=== PATIENT | female | born 1945 | race Caucasian/White ===

== ENCOUNTER 2018-05-23 05:42 | Emergency (ER) | payer OTHER, BC ==
[2018-05-23 06:03] VITALS: BMI 32.5
[2018-05-23] MEDS ORDERED: SODIUM CHLORIDE 0.9% 500 ML INFUS.BAG IV ONE (06:20)
[2018-05-23] MEDS ORDERED: ONDANSETRON 4 MG/2 ML VIAL IVPUSH ONE (06:20)
--- NOTE | 2018-05-23 07:11 | PDOC ---
History of Present Illness - General Chief Complaint: Pain Stated Complaint: ABD PAIN Time Seen by Provider: 05/23/18 07:10 History Source: Patient Exam Limitations: No Limitations - History of Present Illness Initial Comments: 05/23/18 08:35 Pt is a 72yo F with PMH of CAD s/p stent 2013, TIA, HTN, HLD, s/p appendectomy, s/p hysterectomy presenting to ED with complaints of abdominal pain that started around 2AM this morning. Pt states that the pain is intermittent, feels like a squeezing, is along the upper abdomen and back. Associated with nausea and 2 episodes of nbnb emesis. She had a bowel movement this morning when the pain started. Pt has had pain like this before in the past and says it was due to adhesions. She denies fevers, chills, chest pain, sob, diarrhea, constipation , bloody/tarry stools. PMD: Franky GI: Galo PMH: see hpi PSH: see hpi Meds: see med rec Allergies: nkda Social: denies Past History - Past Medical History Allergies/Adverse Reactions: Allergies Allergy/AdvReac Type Severity Reaction Status Date / Time No Known Allergies Allergy Verified 05/23/18 06:03 Home Medications: Ambulatory Orders Aspirin [Ecotrin] 81 mg PO DAILY 05/23/18 Cholecalciferol (Vitamin D3) [Vitamin D3] 1,000 unit PO DAILY 05/23/18 Diclofenac Potassium 100 mg PO DAILY 05/23/18 Garlic 1 each PO DAILY 05/23/18 Glucosam/Chond/Collagen/Hyalur [Glucosamine Chondroitin Cap] 1,500 mg PO DAILY 05/23/18 Isosorbide Mononitrate [Isosorbide Mononitrate ER] 30 mg PO DAILY 05/23/18 Metoprolol Succinate [Toprol Xl] 25 mg PO DAILY 05/23/18 Multivitamin [Poly-Vitamin] 1 each PO DAILY 05/23/18 Olmesartan Medoxomil [Benicar (Nf)] 40 mg PO DAILY 05/23/18 [place]-3/Dha/Epa/Fish Oil [[place] 3 500 Softgel] 2 each PO DAILY 05/23/18 Oxybutynin Chloride [Oxybutynin Chloride ER] 5 mg PO DAILY 05/23/18 Rosuvastatin [Crestor -] 10 mg PO DAILY 05/23/18 Vitamin E 400 unit PO DAILY 05/23/18 Anemia: No Asthma: No Cancer: No Cardiac Disorders: No CVA: No COPD: No CHF: No Dementia: No Diabetes: No GI Disorders: Yes (ADHESIONS,DIVERTICULOSIS,GASTRITIS,REFLUX) Disorders: No HTN: Yes Hypercholesterolemia: Yes Liver Disease: No Seizures: No Thyroid Disease: No - Surgical History Abdominal Surgery: No Appendectomy: Yes Cardiac Surgery: No Cholecystectomy: No Lung Surgery: No Neurologic Surgery: Yes (LAMINECTOMY) Orthopedic Surgery: No - Suicide/Smoking/Psychosocial Hx Smoking Status: No Smoking History: Never smoked Years of Tobacco Use: 35 Have you smoked in the past 12 months: No Number of Cigarettes Smoked Daily: 0 'Breaking Loose' booklet given: 11/07/11 Hx Alcohol Use: No Drug/Substance Use Hx: No Review of Systems - Review of Systems Constitutional: No: Chills, Fever, Loss of Appetite HEENTM: No: Symptoms Reported Respiratory: No: Cough, Shortness of Breath Cardiac (ROS): No: Chest Pain, Lightheadedness, Palpitations, Syncope ABD/GI: Yes: See HPI, Nausea, Vomiting, Abdominal cramping. No: Abdominal Distended, Blood Streaked Bowels, Constipated, Diarrhea, Rectal Bleeding : No: Burning, Dysuria, Flank Pain, Hematuria Musculoskeletal: No: Back Pain, Joint Pain Integumentary: No: Symptoms Reported Neurological: No: Headache, Numbness, Tingling *Physical Exam - Vital Signs Last Vital Signs Temp Pulse Resp BP Pulse Ox 97.1 F L 78 18 156/97 99 05/23/18 06:01 05/23/18 06:01 05/23/18 06:01 05/23/18 06:01 05/23/18 06:01 - Physical Exam General Appearance: Yes: Appropriately Dressed, Mild Distress, Obese HEENT: positive: EOMI, MARIO Neck: positive: Trachea midline, Supple. negative: Lymphadenopathy (R), Lymphadenopathy (L) Respiratory/Chest: positive: Lungs Clear, Normal Breath Sounds. negative: Crackles, Rales, Wheezing Cardiovascular: positive: Regular Rhythm, Regular Rate, S1, S2. negative: Edema , JVD, Murmur Vascular Pulses: Carotid (R): 2+, Carotid (L): 2+, Dorsalis-Pedis (R): 2+, Doralis-Pedis (L): 2+ Gastrointestinal/Abdominal: positive: Normal Bowel Sounds, Tender (RLQ and LLQ) , Soft. negative: Pulsatile Mass, Distended, Guarding, Rebound, Hernia, Mass Musculoskeletal: negative: CVA Tenderness Extremity: positive: Normal Capillary Refill Integumentary: positive: Normal Color, Dry, Warm Neurologic: positive: data management engineer II-XII NML intact, Fully Oriented, Alert, Normal Mood/ Affect, Normal Response, Motor Strength 5/5 Moderate Sedation - Procedure Monitoring Vital Signs: Procedure Monitoring Vital Signs Temperature 97.1 F L 05/23/18 06:01 Pulse Rate 78 05/23/18 06:01 Respiratory Rate 18 05/23/18 06:01 Blood Pressure 156/97 05/23/18 06:01 O2 Sat by Pulse Oximetry (%) 99 05/23/18 06:01 ED Treatment Course - LABORATORY CBC & Chemistry Diagram: 05/23/18 07:57 05/23/18 07:57 - Medications Given in the ED: ED Medications Discontinued Medications Generic Name Dose Route Start Last Admin Trade Name Liang PRN Reason Stop Dose Admin Ondansetron HCl 4 mg 05/23/18 06:20 05/23/18 06:25 Zofran Injection IVPUSH 05/23/18 06:21 4 mg ONCE ONE Administration Sodium Chloride 1,000 ml 05/23/18 06:20 05/23/18 06:25 Normal Saline - IV 05/23/18 06:21 1,000 ml ONCE ONE Administration Medical Decision Making - Medical Decision Making 05/23/18 08:38 Pt is a 72yo F with PMH of CAD s/p stent 2013, TIA, HTN, HLD, s/p appendectomy, s/p hysterectomy presenting to ED with complaints of abdominal pain that started around 2AM this morning. Pt states that the pain is intermittent, feels like a squeezing, is along the upper abdomen and back. Associated with nausea and 2 episodes of nbnb emesis. She had a bowel movement this morning when the pain started. Pt has had pain like this before in the past and says it was due to adhesions. She denies fevers, chills, chest pain, sob, diarrhea, constipation , bloody/tarry stools. Vitals: wnl PE: LLQ and RLQ tenderness. Ddx includes but not limited to bowel obstruction, colitis, pancreatitis, cholecystitis, mesenteric ischemia, ACS, PNA, AAA -cbc, cmp, lactate, lipase, trop, UA -CTAP -zofran and IV fluids ordered by night team. Added IV tylenol, morphine 05/23/18 19:14 Labs show elevated WBC (15), Hgb 16 elevated BUN. Lac 2.2 All other labs wnl. elevated WBC and Hgb most likely due to volume contraction. CT shows fatty infiltrate of liver, slight free fluid in R side of pelvis. No obstruction or infectious process. Will PO challenge and give 1L fluids, redraw Lactate. Pt is tolerating PO. Repeat Lact 1.9 Pt is hemodynamically stable, tolerating PO, has GI follow up, afebrile, pain controlled. Will DC home. Given strict return precautions. *DC/Admit/Observation/Transfer Diagnosis at time of Disposition: Fatty liver Abdominal pain Qualifiers: Abdominal location: generalized Qualified Code(s): R10.84 - Generalized abdominal pain - Discharge Dispostion Disposition: ELOPED Condition at time of disposition: Improved Decision to Admit order: No - Referrals Referrals: Brenden Cage [Primary Care Provider] - Socorro Rosenthal MD [Staff Physician] - - Patient Instructions Printed Discharge Instructions: DI for Abdominal Pain-Adult, DI for Nonalcoholic Fatty Liver Disease Additional Instructions: You were seen here in the emergency room for abdominal pain. Your lab tests were normal and the CT scan did not show any signs of infection or obstruction. I recommend you follow up with Dr. Rosenthal as soon as you can for further evaluation and management of your pain. I also recommend seeing your primary care doctor as well. Please keep yourself hydrated and rest. Come back to the emergency room if pain gets worse, you are unable to eat or drink anything, you notice blood in the vomit or stool, you develop fever or if any new concerning symptom develops. Thank you - Post Discharge Activity
[2018-05-23] MEDS ORDERED: ACETAMINOPHEN 1000 MG/100 ML VIAL (NON FORMULARY) IVPB ONE (07:38)
[2018-05-23] MEDS ORDERED: morphine CARPU-JECT 2 MG/1 ML DISP.SYRIN IVPUSH ONE (08:05)
--- NOTE | 2018-05-23 08:09 | PDOC ---
Attending Attestation - Resident Resident Name: ChristenRosita - ED Attending Attestation I have performed the following: I have examined & evaluated the patient, The case was reviewed & discussed with the resident, I agree w/resident's findings & plan, Exceptions are as noted - HPI HPI: 05/23/18 08:05 72y F hx of htn, hl, sp hysterectomy cb adhesions presents with abdominal pain starting approx 2:30am. The pt has noted intermittent severe crampy abdominal pain that is diffuse, associated with nausea without active vomiting. The patient denies any fever, chills, diarrhea, dysuria, hematuria, and, shortness of breath, diaphoresis, cough, numbness, tingling, weakness. The patient notes he had a bowel movement around when all this started. Patient notes she had similar episode many years ago that was due to adhesions. PMD [place] - Physicial Exam PE: 05/23/18 08:08 GENERAL: The patient is awake, alert, and fully oriented, Nontoxic - in no acute distress. HEAD: Normocephalic, atraumatic. EYES: extraocular movements intact, sclera anicteric, conjunctiva clear. ENT: Normal voice, Moist mucous membranes. NECK: Normal range of motion, supple LUNGS: Breath sounds equal, clear to auscultation bilaterally. No wheezes, no rhonchi, no rales. HEART: Regular rate and rhythm, normal S1 and S2 without murmur, rub or gallop. ABDOMEN: Soft, nontender, deminished bowel sounds. EXTREMITIES: Normal range of motion, no edema. NEUROLOGICAL: No facial assymetry, Normal speech, PSYCH: Normal mood, normal affect. SKIN: Warm, Dry, normal turgor, - Medical Decision Making 05/23/18 08:08 Suspect possible obstruction versus ileus We'll obtain blood work, may obtain CT antiemetics, fluids, hydration, analgesia for pain We will reassess 05/23/18 11:14 The patient's labs were reviewed lactic acid is slightly elevated 2.2 The patient does have a white count of suspect may be due to dehydration. The patient is abdominal CT was negative for acute pathology or obstruction. We'll hydrate the patient and rechecked patient's lactic acid and will if negative and the patient is a symptomatic we'll discharge patient Heart Score/ECG Review - ECG Impressions Comment:: 05/23/18 08:09 Twelve-lead EKG was performed and reviewed by me. There is normal sinus rhythm with a normal rate. Rate of 81 The axis is normal. The intervals are normal. There is normal R wave progression Q wave in lead 3
[2018-05-23] MEDS ORDERED: MORPHINE SULFATE 2 MG/ML VIAL ONE (08:13)
[2018-05-23 08:48] LABS: BASO % 0.2 % (0-2.0); EOS % 0.2 % (0-4.5); HEMATOCRIT 47.7 % (32.4-45.2); HEMOGLOBIN 16.3 GM/dL (10.7-15.3); LYMPH % 7.8 % (8-40); MCH 30.5 pg (25.7-33.7); MCHC 34.1 g/dl (32.0-36.0); MEAN CELL VOLUME 89.6 fl (80-96); MEAN PLT VOLUME 9.3 fl (7.5-11.1); MONO % 4.5 % (3.8-10.2); NEUT % 87.3 % (42.8-82.8); PLATELET COUNT 181 K/MM3 (134-434); RBC 5.32 M/mm3 (3.60-5.2); RDW 14.4 % (11.6-15.6); WHITE BLOOD COUNT 15.7 K/mm3 (4.0-10.0)
[2018-05-23 09:23] LABS: URINE APPEARANCE CLEAR; URINE BILIRUBIN NEGATIVE (<2.0 mg/dL); URINE COLOR YELLOW; URINE GLUCOSE (UA) NEGATIVE (NEGATIVE); URINE KETONE TRACE (NEGATIVE); URINE LEUK ESTERASE NEGATIVE (NEGATIVE); URINE NITRITE NEGATIVE (NEGATIVE); URINE PROTEIN NEGATIVE (NEGATIVE); URINE UROBILINOGEN NEGATIVE mg/dL (0.2-1.0)
[2018-05-23 09:32] LABS: ALBUMIN 4.5 g/dl (3.4-5.0); ALK PHOS 78 U/L (45-117); ANION GAP 9 MMOL/L (8-16); BILIRUBIN,TOTAL 0.5 mg/dL (0.2-1); BLOOD UREA NITROGEN 22 mg/dL (7-18); CALCIUM 9.8 mg/dL (8.5-10.1); CHLORIDE 105 mmol/L (98-107); CO2 27 mmol/L (21-32); CREATININE 0.8 mg/dL (0.55-1.3); GLUCOSE,RANDOM 109 mg/dL (74-106); POTASSIUM 4.3 mmol/L (3.5-5.1); SGOT/AST 35 U/L (15-37); SGPT/ALT 49 U/L (13-61); SODIUM 141 mmol/L (136-145); TOT PROT 7.8 g/dl (6.4-8.2)
[2018-05-23 09:33] LABS: LIPASE 69 U/L (73-393)
[2018-05-23] MEDS ORDERED: LACTATED RINGERS SOLUTION 1000 ML INFUS.BAG IV ONE (09:47)
[2018-05-23 12:57] VITALS: BP 141/76; PULSE 81; TEMP 98.1
--- NOTE | 2018-05-23 16:34 | EKG ---
Test Reason : Blood Pressure : / mmHG Vent. Rate : 081 BPM Atrial Rate : 081 BPM P-R Int : 160 ms QRS Dur : 068 ms QT Int : 370 ms P-R-T Axes : 048 -04 043 degrees QTc Int : 429 ms NORMAL SINUS RHYTHM MINIMAL VOLTAGE CRITERIA FOR LVH, MAY BE NORMAL VARIANT INFERIOR INFARCT (CITED ON OR BEFORE 07-DEC-2007) ABNORMAL ECG WHEN COMPARED WITH ECG OF 22-AUG-2013 16:39, NO SIGNIFICANT CHANGE WAS FOUND Confirmed by Ana Lam ([id number]) on 05/23/2018 4:34:27 PM Referred By: Confirmed By:Ana Lam
== END 2018-05-23 12:56 | disposition left against medical advice (07) ==
LOC: JER 05:42
PROC: 3E033GC Introduction of Other Therapeutic Substance into Peripheral Vein, Percutaneous Approach (ICD-10-PCS; principal; 2018-05-23)
PROC: 3E033NZ Introduction of Analgesics, Hypnotics, Sedatives into Peripheral Vein, Percutaneous Approach (ICD-10-PCS; 2018-05-23)
PROC: 3E033NZ Introduction of Analgesics, Hypnotics, Sedatives into Peripheral Vein, Percutaneous Approach (ICD-10-PCS; 2018-05-23)
DX: K76.0 Fatty (change of) liver, not elsewhere classified (principal); I25.10 Atherosclerotic heart disease of native coronary artery without angina pectoris; I10 Essential (primary) hypertension; Z95.5 Presence of coronary angioplasty implant and graft; E78.5 Hyperlipidemia, unspecified; Z86.73 Personal history of transient ischemic attack (TIA), and cerebral infarction without residual deficits
CPT/HCPCS: 36415; 74177-TC; 80053; 81003; 83605; 83690; 84484; 85025; 93005; 93010; 99282-25

== ENCOUNTER 2018-09-07 06:37 | Day surgery (SDC) | payer OTHER, BC ==
[2018-09-07 07:41] VITALS: BMI 33.0
[2018-09-07 09:00] VITALS: TEMP 97.8
[2018-09-07 12:18] VITALS: BP 134/79; PULSE 86
== END 2018-09-07 09:30 | disposition home or self-care (01) ==
LOC: JASU-ENDO 06:37
PROVIDERS: ATTEND Internal Medicine Gastroenterology
PROC: 0DJD8ZZ Inspection of Lower Intestinal Tract, Via Natural or Artificial Opening Endoscopic (ICD-10-PCS; principal; 2018-09-07 08:00)
DX: Z12.11 Encounter for screening for malignant neoplasm of colon (principal); K62.5 Hemorrhage of anus and rectum; K57.30 Diverticulosis of large intestine without perforation or abscess without bleeding; K64.8 Other hemorrhoids; K63.89 Other specified diseases of intestine

== ENCOUNTER 2019-03-04 11:21 | Emergency (ER) | payer OTHER, BC ==
[2019-03-04 11:29] VITALS: BP 143/90; PULSE 89; TEMP 97.8; BMI 34.6
[2019-03-04] MEDS ORDERED: FAMOTIDINE 20 MG/50 ML IVPB 20 MG/50 ML MG IVPB ONE (12:18)
[2019-03-04] MEDS ORDERED: MAG HYDROX/AL HYDROX/SIMETH 30 ML UNIT-DOSE CUP PO ONE (12:18)
--- NOTE | 2019-03-04 12:24 | PDOC ---
History of Present Illness - General Chief Complaint: Chest Pain Stated Complaint: CHEST PAIN Time Seen by Provider: 03/04/19 11:52 - History of Present Illness Initial Comments: 03/04/19 12:19 73 F with h/o HTN, COPD, presenting to ED with 3 weeks of intermittent chest pain. Pt states that she has been having L sided chest pain on and off. Describes it as a "gas-like" pain that comes on suddenly and self-resolves. Pt denies any associated SOB or nausea. Pt denies exertional or pleuritic nature of the pain. Denies any leg swelling. Denies recent travel/immobilization. No FH of [place]. Pt is former smoker but quit 20 years ago. Pt currently denies any symptoms. Past History - Past Medical History Allergies/Adverse Reactions: Allergies Allergy/AdvReac Type Severity Reaction Status Date / Time No Known Allergies Allergy Verified 05/23/18 06:03 Home Medications: Ambulatory Orders Aspirin [Ecotrin] 81 mg PO DAILY 05/23/18 Cholecalciferol (Vitamin D3) [Vitamin D3] 1,000 unit PO DAILY 05/23/18 Garlic 1 each PO DAILY 05/23/18 Glucosam/Chond/Collagen/Hyalur [Glucosamine Chondroitin Cap] 1,500 mg PO DAILY 05/23/18 Isosorbide Mononitrate [Isosorbide Mononitrate ER] 30 mg PO DAILY 05/23/18 Metoprolol Succinate [Toprol Xl] 25 mg PO DAILY 05/23/18 Multivitamin [Poly-Vitamin] 1 each PO DAILY 05/23/18 Olmesartan Medoxomil [Benicar -] 40 mg PO DAILY 05/23/18 [place]-3/Dha/Epa/Fish Oil [[place] 3 500 Softgel] 2 each PO DAILY 05/23/18 Oxybutynin Chloride [Oxybutynin Chloride ER] 5 mg PO DAILY 05/23/18 Rosuvastatin [Crestor -] 10 mg PO DAILY 05/23/18 Vitamin E 100 unit PO DAILY 05/23/18 Diclofenac Sodium [Voltaren -] 100 mg PO PRN PRN 09/07/18 Tiotropium [place] [Spiriva] 1 inh PO DAILY 09/07/18 Anemia: No Asthma: No Cancer: No Cardiac Disorders: Yes (ASHD) CVA: No COPD: Yes CHF: No Dementia: No Diabetes: No GI Disorders: Yes (ADHESIONS,DIVERTICULOSIS,GASTRITIS,REFLUX) Disorders: No HTN: Yes Hypercholesterolemia: Yes Liver Disease: No Seizures: No Thyroid Disease: No - Surgical History Abdominal Surgery: No Appendectomy: Yes (COLONOSCOPY 2X) Cardiac Surgery: Yes (CORONARY STENT) Cholecystectomy: No Lung Surgery: No Neurologic Surgery: Yes (LAMINECTOMY) Orthopedic Surgery: No - Immunization History Immunization Up to Date: No - Psycho Social/Smoking Cessation Hx Smoking Status: No Smoking History: Former smoker Years of Tobacco Use: 35 Have you smoked in the past 12 months: No Number of Cigarettes Smoked Daily: 0 Information on smoking cessation initiated: No 'Breaking Loose' booklet given: 11/07/11 Hx Alcohol Use: No Drug/Substance Use Hx: No Substance Use Type: None Hx Substance Use Treatment: No Review of Systems - Review of Systems Comments:: 03/04/19 12:20 "GENERAL/CONSTITUTIONAL: No fever or chills. No weakness. HEAD, EYES, EARS, NOSE AND THROAT: No change in vision. No ear pain or discharge. No sore throat. CARDIOVASCULAR: + chest pain, no shortness of breath, no loss of consciousness RESPIRATORY: No cough, wheezing, or hemoptysis. GASTROINTESTINAL: No nausea, vomiting, diarrhea or constipation. GENITOURINARY: No dysuria, frequency, or change in urination. MUSCULOSKELETAL: No joint or muscle swelling or pain. No neck or back pain. SKIN: No rash NEUROLOGIC: No vertigo, no change in strength/sensation. ENDOCRINE: No increased thirst. No abnormal weight change. HEMATOLOGIC/LYMPHATIC: No anemia, easy bleeding, or history of blood clots. ALLERGIC/IMMUNOLOGIC: No hives or skin allergy. *Physical Exam - Vital Signs Last Vital Signs Temp Pulse Resp BP Pulse Ox 97.8 F 89 16 143/90 98 03/04/19 11:23 03/04/19 11:23 03/04/19 11:23 03/04/19 11:23 03/04/19 11:23 - Physical Exam Comments: 03/04/19 12:22 "GENERAL: Awake, alert, and fully oriented, in no acute distress. HEAD: No signs of trauma EYES: PERRLA, EOMI, sclera anicteric, conjunctiva clear ENT: Auricles normal inspection, hearing grossly normal, nares patent, oropharynx clear without exudates. Moist mucosa NECK: Nontender, no stepoffs, Normal ROM, supple, no lymphadenopathy, JVD, or masses LUNGS: Breath sounds equal, clear to auscultation bilaterally. No wheezes, and no crackles HEART: Regular rate and rhythm, normal S1 and S2, no murmurs, rubs or gallops ABDOMEN: + epigastric TTP, normoactive bowel sounds. No guarding, no rebound. No masses EXTREMITIES: Normal range of motion, no edema. No clubbing or cyanosis. No cords, erythema, or tenderness NEUROLOGICAL: Cranial nerves II through XII intact. 5/5 strength and sensation in all extremities, Normal speech, normal gait, normal cerebellar function SKIN: Warm, Dry, normal turgor, no rashes or lesions noted. Heart Score/ECG Review - History History: Slightly suspicious - Electrocardiogram EKG: Normal - Age Age: >/= 65 - Risk Factors Risk Factors Heart Score: Yes Hx Hypertension, Yes Smoking History Based on the list above the patient has:: 1-2 risk factors - Troponin Troponin: </= normal limit - Score Heart Score - Total: 3 - ECG Impressions Comment:: 03/04/19 12:22 NSR, no FERMIN/STDs, no TWIs, L axis deviation, intervals wnl, rate 87 ED Treatment Course - LABORATORY CBC & Chemistry Diagram: 03/04/19 12:30 03/04/19 12:30 - RADIOLOGY Radiology Studies Ordered: Category Date Time Status CHEST PA & LAT [RAD] Stat Radiology 03/04/19 12:17 Ordered Medical Decision Making - Medical Decision Making 03/04/19 12:23 73 F with intermittent chest pain x 3 weeks. Very atypical for ACS. EKG with no ischemic changes. Possible gastritis/reflux, as pt reports gas-like pain. Abdominal exam with epigastric TTP. - Labs, trop - CXR - GI cocktail 03/04/19 14:19 Labs wnl CXR clear Pt reassessed - continues to feel well, with no chest pain Pt is well appearing, with normal vitals. Clinically stable for DC at this time. I discussed the physical exam findings, ancillary test results and final diagnoses with the patient. I answered all of the patient's questions. The patient was satisfied with the care received and felt comfortable with the discharge plan and treatment plan. The patient agrees to follow up with the primary care physician within 24-72 hours. Discharge - Discharge Information Problems reviewed: Yes Clinical Impression/Diagnosis: Chest pain Condition: Stable Disposition: HOME - Follow up/Referral Referrals: Brenden Cage [Primary Care Provider] - Andrew Harman MD [Staff Physician] - - Patient Discharge Instructions Patient Printed Discharge Instructions: DI for Atypical Chest Pain Additional Instructions: Your bloodwork, EKG, and chest X ray were all normal today. However, this does not rule out all serious disease. Please follow up with a material manager within 1 week for further evaluation of your chest pain. Call the number provided to make an appointment with Dr. Harman if you do not already have a material manager. If you experience recurrent pain, shortness of breath, or any other concerning symptoms, return to the ER immediately. - Post Discharge Activity
[2019-03-04] MEDS ORDERED: FAMOTIDINE 20 MG TABLET PO ONE (12:25)
[2019-03-04] MEDS ORDERED: FAMOTIDINE 10 MG TABLET ONE (12:40)
[2019-03-04] MEDS ORDERED: MAG HYDROX/AL HYDROX/SIMETH 30 ML UNIT-DOSE CUP ONE (12:41)
[2019-03-04 13:09] LABS: BASO % 0.5 % (0-2.0); EOS % 1.9 % (0-4.5); HEMATOCRIT 42.6 % (32.4-45.2); HEMOGLOBIN 14.3 GM/dL (10.7-15.3); LYMPH % 34.3 % (8-40); MCH 29.8 pg (25.7-33.7); MCHC 33.7 g/dl (32.0-36.0); MEAN CELL VOLUME 88.4 fl (80-96); MEAN PLT VOLUME 9.2 fl (7.5-11.1); MONO % 7.8 % (3.8-10.2); NEUT % 55.5 % (42.8-82.8); PLATELET COUNT 189 K/MM3 (134-434); RBC 4.81 M/mm3 (3.60-5.2); RDW 14.9 % (11.6-15.6); WHITE BLOOD COUNT 6.6 K/mm3 (4.0-10.0)
[2019-03-04 13:17] LABS: ALBUMIN 3.8 g/dl (3.4-5.0); ALK PHOS 77 U/L (45-117); ANION GAP 5 MMOL/L (8-16); BILIRUBIN,TOTAL 0.4 mg/dL (0.2-1); BLOOD UREA NITROGEN 19.9 mg/dL (7-18); CALCIUM 9.4 mg/dL (8.5-10.1); CHLORIDE 109 mmol/L (98-107); CO2 25 mmol/L (21-32); CREATININE 0.7 mg/dL (0.55-1.3); GLUCOSE,RANDOM 103 mg/dL (74-106); LIPASE 67 U/L (73-393); POTASSIUM 4.4 mmol/L (3.5-5.1); SGOT/AST 31 U/L (15-37); SGPT/ALT 46 U/L (13-61); SODIUM 139 mmol/L (136-145)
--- NOTE | 2019-03-05 13:52 | EKG ---
Test Reason : Blood Pressure : / mmHG Vent. Rate : 087 BPM Atrial Rate : 087 BPM P-R Int : 158 ms QRS Dur : 068 ms QT Int : 344 ms P-R-T Axes : 046 -13 037 degrees QTc Int : 413 ms NORMAL SINUS RHYTHM POSSIBLE LEFT ATRIAL ENLARGEMENT LEFT VENTRICULAR HYPERTROPHY INFERIOR INFARCT (CITED ON OR BEFORE 07-DEC-2007) ABNORMAL ECG WHEN COMPARED WITH ECG OF 23-MAY-2018 07:46, NO SIGNIFICANT CHANGE WAS FOUND Confirmed by HANNAH HARDY MD ([id number]) on 03/05/2019 1:52:19 PM Referred By: Confirmed By:HANNAH HARDY MD
== END 2019-03-04 14:41 | disposition home or self-care (01) ==
LOC: JER 11:21
DX: R07.9 Chest pain, unspecified (principal); I25.10 Atherosclerotic heart disease of native coronary artery without angina pectoris; Z95.5 Presence of coronary angioplasty implant and graft; J44.9 Chronic obstructive pulmonary disease, unspecified; E78.00 Pure hypercholesterolemia, unspecified; Z87.19 Personal history of other diseases of the digestive system
CPT/HCPCS: 36415; 71046-TC-FY; 80053; 82550; 82553; 83690; 84484; 85025; 93005; 93010; 99282-25

== ENCOUNTER 2019-03-05 17:55 | Emergency (ER) | payer OTHER, BC ==
--- NOTE | 2019-03-05 18:02 | PDOC ---
Rapid Medical Evaluation Chief Complaint: Pain Time Seen by Provider: 03/05/19 17:59 Medical Evaluation: Allergies Allergy/AdvReac Type Severity Reaction Status Date / Time No Known Allergies Allergy Verified 03/05/19 17:58 03/05/19 17:59 73 year old female c/o NVD, abdominal pain " feels like my bowels are twisting. " seen in the ER yesterday PMHX: adhesions, copd, diverticulitis A: abdominal pain P: cbc cmp lipase ua urine culture 03/05/19 18:03 Discharge Disposition - Diagnosis Abdominal pain Qualifiers: Abdominal location: unspecified location Qualified Code(s): R10.9 - Unspecified abdominal pain - Referrals Referrals: Trey Rosenthal MD [Primary Care Provider] - - Patient Instructions - Post Discharge Activity
[2019-03-05 18:04] VITALS: PULSE 112; TEMP 97.9; BMI 34.6
[2019-03-05] MEDS ORDERED: ONDANSETRON 4 MG/2 ML VIAL IVPUSH ONE (18:15)
[2019-03-05] MEDS ORDERED: ONDANSETRON 4 MG/2 ML VIAL ONE (18:29)
[2019-03-05 18:57] LABS: BASO % 0.2 % (0-2.0); EOS % 0.4 % (0-4.5); HEMATOCRIT 46.2 % (32.4-45.2); HEMOGLOBIN 15.3 GM/dL (10.7-15.3); LYMPH % 10.9 % (8-40); MCH 29.5 pg (25.7-33.7); MCHC 33.1 g/dl (32.0-36.0); MEAN CELL VOLUME 89.1 fl (80-96); MEAN PLT VOLUME 9.3 fl (7.5-11.1); MONO % 3.1 % (3.8-10.2); NEUT % 85.4 % (42.8-82.8); PLATELET COUNT 192 K/MM3 (134-434); RBC 5.18 M/mm3 (3.60-5.2); RDW 14.6 % (11.6-15.6); WHITE BLOOD COUNT 12.3 K/mm3 (4.0-10.0)
--- NOTE | 2019-03-05 19:10 | PDOC ---
History of Present Illness - General Chief Complaint: Pain Stated Complaint: STOMACH PAIN Time Seen by Provider: 03/05/19 17:59 - History of Present Illness Initial Comments: The pt is a 73F w/ a history of HTN, HLD, COPD, multiple intra-abdominal surgeries, adhesions, and history of volvulus who presents for evaluation of 2 days of generalized, cramping, abdominal pain that occasionally radiates to her back, is associated with NBNB emesis x2 today, is alleviated by BMs/flatus/ emesis, and not exacerbated by anything that she can identify. She also endorses history of constipation with loose stools yesterday and today. Denies fevers/chills, chest pain, trouble breathing, blood in her vomit/stool, dysuria, hematuria, or rash. 03/05/19 19:33 Past History - Past Medical History Allergies/Adverse Reactions: Allergies Allergy/AdvReac Type Severity Reaction Status Date / Time No Known Allergies Allergy Verified 03/05/19 17:58 Home Medications: Ambulatory Orders Aspirin [Ecotrin] 81 mg PO DAILY 05/23/18 Cholecalciferol (Vitamin D3) [Vitamin D3] 1,000 unit PO DAILY 05/23/18 Garlic 1 each PO DAILY 05/23/18 Glucosam/Chond/Collagen/Hyalur [Glucosamine Chondroitin Cap] 1,500 mg PO DAILY 05/23/18 Isosorbide Mononitrate [Isosorbide Mononitrate ER] 30 mg PO DAILY 05/23/18 Metoprolol Succinate [Toprol Xl] 25 mg PO DAILY 05/23/18 Multivitamin [Poly-Vitamin] 1 each PO DAILY 05/23/18 Olmesartan Medoxomil [Benicar -] 40 mg PO DAILY 05/23/18 [place]-3/Dha/Epa/Fish Oil [[place] 3 500 Softgel] 2 each PO DAILY 05/23/18 Oxybutynin Chloride [Oxybutynin Chloride ER] 5 mg PO DAILY 05/23/18 Rosuvastatin [Crestor -] 10 mg PO DAILY 05/23/18 Vitamin E 100 unit PO DAILY 05/23/18 Diclofenac Sodium [Voltaren -] 100 mg PO PRN PRN 09/07/18 Tiotropium [place] [Spiriva] 1 inh PO DAILY 09/07/18 Anemia: No Asthma: No Cancer: No Cardiac Disorders: Yes (ASHD) CVA: No COPD: Yes CHF: No Dementia: No Diabetes: No GI Disorders: Yes (ADHESIONS,DIVERTICULOSIS,GASTRITIS,REFLUX) Disorders: No HTN: Yes Hypercholesterolemia: Yes Liver Disease: No Seizures: No Thyroid Disease: No - Surgical History Abdominal Surgery: No Appendectomy: Yes (COLONOSCOPY 2X) Cardiac Surgery: Yes (CORONARY STENT) Cholecystectomy: No Lung Surgery: No Neurologic Surgery: Yes (LAMINECTOMY) Orthopedic Surgery: No - Immunization History Immunization Up to Date: No - Psycho Social/Smoking Cessation Hx Smoking Status: No Smoking History: Never smoked Years of Tobacco Use: 35 Have you smoked in the past 12 months: No Number of Cigarettes Smoked Daily: 0 'Breaking Loose' booklet given: 11/07/11 Hx Alcohol Use: No Drug/Substance Use Hx: No Substance Use Type: None Hx Substance Use Treatment: No Review of Systems - Review of Systems Able to Perform ROS?: Yes Comments:: GENERAL/CONSTITUTIONAL: No fever or chills. No weakness HEAD, EYES, EARS, NOSE AND THROAT: No change in vision. No change in hearing. No sore throat CARDIOVASCULAR: No chest pain or shortness of breath RESPIRATORY: Denies cough, hemoptysis GASTROINTESTINAL: +N/V/D GENITOURINARY: No dysuria, frequency, or change in urination MUSCULOSKELETAL: No joint or muscle swelling or pain. No neck or back pain SKIN: No rash NEUROLOGIC: No headache, vertigo, loss of consciousness, or change in strength/ sensation ENDOCRINE: No increased thirst. No abnormal weight change HEMATOLOGIC/LYMPHATIC: No anemia, easy bleeding, or history of blood clots ALLERGIC/IMMUNOLOGIC: No hives or skin allergy 03/05/19 19:10 Is the patient limited Estonian proficient: No *Physical Exam - Vital Signs Last Vital Signs Temp Pulse Resp BP Pulse Ox 97.9 F 112 H 20 195/120 H 94 L 03/05/19 17:58 03/05/19 17:58 03/05/19 17:58 03/05/19 17:58 03/05/19 17:58 - Physical Exam Comments: GENERAL: Awake, alert, and oriented to person/place/time, in no acute distress HEAD: No signs of trauma, normocephalic, atraumatic EYES: PERRLA, EOMI, sclera anicteric, conjunctiva clear ENT: Hearing grossly normal, nares patent, oropharynx clear without exudates. Moist mucosa LUNGS: No distress, speaks in full sentences, clear to auscultation bilaterally HEART: Regular rate and rhythm, normal S1 and S2, no murmurs appreciated, peripheral pulses normal and equal bilaterally ABDOMEN: Soft, protuberant, generalized TTP w/o rebound or guarding, normoactive bowel sounds EXTREMITIES: Normal inspection, Normal range of motion, no edema. No clubbing or cyanosis NEUROLOGICAL: Cranial nerves II through XII grossly intact. Normal speech, normal gait, no focal sensorimotor deficits SKIN: Warm, Dry 03/05/19 19:10 ED Treatment Course - LABORATORY CBC & Chemistry Diagram: 03/05/19 18:25 03/05/19 18:25 - ADDITIONAL ORDERS Additional order review: 03/05/19 18:25 RBC 5.18 MCV 89.1 MCHC 33.1 RDW 14.6 MPV 9.3 Neutrophils % 85.4 H D Lymphocytes % 10.9 D Monocytes % 3.1 L Eosinophils % 0.4 Basophils % 0.2 - RADIOLOGY Radiograph Interpretation: Abdomen and pelvis CT with intravenous contrast No evidence of pneumoperitoneum, abscess or bowel obstruction. A small amount of pelvic free intraperitoneal fluid is seen which appears mildly increased in volume in comparison to a prior CT study of 05/23/2018. The remainder of the exam demonstrates no definite interval change. Diffuse hepatic steatosis. The gallbladder demonstrates no CT pathology. No radiopaque calculi are noted. There is no CT evidence of acute cholecystitis. As on the prior exam the common bile duct is mildly dilated measuring 0.9 cm in diameter. No gross intraductal calculus is identified within the limitations of CT. The spleen, pancreas, adrenal glands and kidneys demonstrate no discrete abnormality. There is no aortic aneurysm. No obvious lymphadenopathy is noted. The appendix is not definitely visualized however there are no indirect CT signs of acute appendicitis. No CT evidence of acute diverticulitis. There is no gross noncontrast small bowel pathology. Absent versus atrophic uterus. Mild L4-L5 degenerative spondylolisthesis. Marked bilateral L4-5 degenerative facet arthropathy. Impression: A small amount of free fluid is seen within the right lower pelvis which appears somewhat increased in comparison to a CT study of 05/23/2018 - ? underlying etiology. Correlate clinically and with close follow-up CT. The remainder of the exam appears unchanged. Diffuse hepatic steatosis. Note is again made of mild common bile duct dilatation. 03/05/19 23:14 - Medications Given in the ED: ED Medications Discontinued Medications Generic Name Dose Route Start Last Admin Trade Name Liang PRN Reason Stop Dose Admin Ondansetron HCl 4 mg 03/05/19 18:15 03/05/19 18:38 Zofran Injection IVPUSH 03/05/19 18:16 4 mg ONCE ONE Administration Medical Decision Making - Medical Decision Making The pt is a 73F w/ a history of HTN, HLD, COPD, multiple intra-abdominal surgeries, adhesions, and history of volvulus who presents for evaluation of 2 days of generalized, cramping, abdominal pain ED Course Labs sent CT A&P s/p Zofran Pt does not want pain medicine at this time 03/05/19 19:37 No anemia WBC 12.3, no fevers/tachycardia, and normotensive Lytes unremarkable Trop I neg LFTs wnl Lactate and CT read pending Pt reports being asymptomatic at this time 03/05/19 21:52 Lactate neg 03/05/19 22:57 CT w/o acute pathology, change in free fluid noted, pt informed Plan for D/C w/ PCP f/u Discharge instructions and return precautions given Patient in agreement and verbalized understanding Dispo: Home 03/05/19 23:15 Discharge - Discharge Information Problems reviewed: Yes Clinical Impression/Diagnosis: Abdominal pain Qualifiers: Abdominal location: unspecified location Qualified Code(s): R10.9 - Unspecified abdominal pain Vomiting Qualifiers: Vomiting type: unspecified Vomiting Intractability: non-intractable Nausea presence: unspecified Qualified Code(s): R11.10 - Vomiting, unspecified Condition: Improved Disposition: HOME - Admission No - Follow up/Referral Referrals: Trey Rosenthal MD [Primary Care Provider] - - Patient Discharge Instructions Patient Printed Discharge Instructions: DI for Abdominal Pain-Adult Additional Instructions: You were seen in the Emergency Department for evaluation of abdominal pain. Your labs were unremarkable. Your CT scan was notable for a small increase in fluid in your abdomen. This can be non-specific but should be followed up with your Billing Collections Specialist. Review the handout provided at discharge. Follow up with your primary care physician within the next week. For pain you may take Tylenol 650mg every 6 hours and Ibuprofen 600mg every 6-8 hours, alternating them each time. Return to the Emergency Department if you develop fevers/chills, chest pain, trouble breathing, vomiting, worsening pain, change in sensation, worsening symptoms, or any new/concerning symptoms. - Post Discharge Activity Work/Back to School Note: Back to Work
[2019-03-05 19:25] LABS: ALBUMIN 4.4 g/dl (3.4-5.0); ALK PHOS 79 U/L (45-117); ANION GAP 6 MMOL/L (8-16); BILIRUBIN,TOTAL 0.7 mg/dL (0.2-1); BLOOD UREA NITROGEN 17.3 mg/dL (7-18); CALCIUM 10.2 mg/dL (8.5-10.1); CHLORIDE 101 mmol/L (98-107); CO2 31 mmol/L (21-32); CREATININE 0.8 mg/dL (0.55-1.3); GLUCOSE,RANDOM 153 mg/dL (74-106); SGOT/AST 34 U/L (15-37); SGPT/ALT 50 U/L (13-61); SODIUM 138 mmol/L (136-145); TOT PROT 7.6 g/dl (6.4-8.2)
--- NOTE | 2019-03-05 19:34 | PDOC ---
Attending Attestation - Resident Resident Name: Bryan Qiu - ED Attending Attestation I have performed the following: I have examined & evaluated the patient, The case was reviewed & discussed with the resident, I agree w/resident's findings & plan, Exceptions are as noted - HPI HPI: 03/05/19 21:06 Ms. Gordon is a 73 yo F h/o HTN, HLD, COPD, multiple intra-abdominal surgeries, adhesions, and history of volvulus who presents for evaluation of abdominal pain. Patient states she was in her usual state of health today. Had lunch at approximately 11:00. She noted abdominal pain starting at a proximally 1 PM. She had to leave work today. She has had intractable abdominal pain throughout this entire afternoon. At approximately 5 PM she vomited a large volume. No fevers or chills. Pain is described as crampy, located in the lower abdomen, occasionally radiating to her back. Patient notes 4 days of constipation and prior to that diarrhea Denies chest pain, trouble breathing, blood in her vomit/stool, dysuria, hematuria, or rash. 03/05/19 19:33 03/05/19 21:56 - Physicial Exam PE: 03/05/19 19:34 GENERAL: The patient is in no acute distress. ENT: Ears normal, nares patent, oropharynx clear without exudates. Moist mucous membranes. No tonsillar enlargement, no exudates NECK: Normal range of motion, supple, no nuchal rigidity (+) LAD LUNGS: Breath sounds equal, clear to auscultation bilaterally. No wheezes, and no crackles. HEART:Regular rate and rhythm, normal S1 and S2 without murmur, rub or gallop. ABDOMEN: Soft, nontender, normoactive bowel sounds. EXTREMITIES: Normal range of motion, no edema. NEUROLOGICAL: Cranial nerves II through XII grossly intact. Normal speech. No focal neurological deficits. SKIN: Warm, Dry, normal turgor, no rashes or lesions noted. - Medical Decision Making 03/05/19 21:06 Laboratory Tests 03/05/19 03/05/19 18:25 18:25 WBC 12.3 H Hgb 15.3 Hct 46.2 H Plt Count 192 Neutrophils % 85.4 H D BUN 17.3 Creatinine 0.8 Troponin I < 0.02 03/05/19 21:57 Upon reassessment, patient has no pain it has completely resolved Awaiting CT abdomen and pelvis Lactate pending 03/06/19 03:45 Laboratory Tests 03/05/19 21:25 Lactic Acid 1.8 03/06/19 03:46 CT of the abdomen and pelvis: Hepatic steatosis no pathology of the gallbladder As on prior imaging, CBD is mildly dilated at 0.9 cm Spleen, pancreas, adrenals, kidneys demonstrate no discrete abnormality No signs of diverticulitis Patient states she feels much better Her pain is completely resolved Would like to eat We will discharge home Clinical impression: Abdominal pain, initial presentation
[2019-03-05 19:46] LABS: LIPASE 66 U/L (73-393)
[2019-03-05 22:54] VITALS: BP 137/82
--- NOTE | 2019-03-07 20:17 | EKG ---
Test Reason : Blood Pressure : / mmHG Vent. Rate : 094 BPM Atrial Rate : 094 BPM P-R Int : 154 ms QRS Dur : 066 ms QT Int : 360 ms P-R-T Axes : 067 004 051 degrees QTc Int : 450 ms POOR DATA QUALITY, INTERPRETATION MAY BE ADVERSELY AFFECTED NORMAL SINUS RHYTHM POSSIBLE LEFT ATRIAL ENLARGEMENT BORDERLINE ECG WHEN COMPARED WITH ECG OF 04-MAR-2019 11:23, NO SIGNIFICANT CHANGE WAS FOUND Confirmed by JORDYN CHAMPION MD ([id number]) on 03/07/2019 8:16:52 PM Referred By: Confirmed By:JORDYN CHAMPION MD
== END 2019-03-05 23:26 | disposition home or self-care (01) ==
LOC: JER 17:55
DX: R10.9 Unspecified abdominal pain (principal); R11.10 Vomiting, unspecified; I25.10 Atherosclerotic heart disease of native coronary artery without angina pectoris; I10 Essential (primary) hypertension; Z95.5 Presence of coronary angioplasty implant and graft; E78.5 Hyperlipidemia, unspecified; J44.9 Chronic obstructive pulmonary disease, unspecified; Z87.19 Personal history of other diseases of the digestive system
CPT/HCPCS: 36415; 74177-TC; 80053; 83605; 83690; 84484; 85025; 93005; 93010; 99284-25

== ENCOUNTER 2019-11-10 15:58 | Emergency (ER) | payer OTHER, BC ==
[2019-11-10 16:05] VITALS: BMI 35.7
--- NOTE | 2019-11-10 16:44 | PDOC ---
History of Present Illness - General Chief Complaint: Weakness Stated Complaint: Weakness - History of Present Illness Initial Comments: The pt reports feeling unsteady in her gait at approximately 2525-2106 today so she went to [facility] for evaluation. Those symptoms lasted for minutes. She denies any other symptoms before/after the incident including FOLEY, dizziness, lightheadedness, vision changes, chest pain, trouble breathing, N/V, abdominal pain, changes in sensation/strength, or recent fevers. Pt denies changes in her medication and states she uses a pill organizer to make sure the takes the right dose everyday. 11/10/19 16:57 Past History - Medical History Allergies/Adverse Reactions: Allergies Allergy/AdvReac Type Severity Reaction Status Date / Time No Known Allergies Allergy Verified 11/10/19 16:05 Home Medications: Ambulatory Orders Aspirin 81 mg PO DAILY 11/10/19 Cholecalciferol (Vitamin D3) [Vitamin D3] 1,000 unit PO DAILY 11/10/19 Gabapentin 100 mg PO TID 11/10/19 Gabapentin 100 mg PO TID 11/10/19 Isosorbide Mononitrate [Isosorbide Mononitrate ER] 30 mg PO DAILY 11/10/19 Metoprolol Tartrate 25 mg PO DAILY 11/10/19 Olmesartan Medoxomil 40 mg PO DAILY 11/10/19 Oxybutynin Chloride [Oxybutynin Chloride ER] 5 mg PO DAILY 11/10/19 Rosuvastatin [Crestor -] 10 mg PO DAILY 11/10/19 Umeclidinium [place] [Incruse Ellipta] 62.5 mcg PO DAILY 11/10/19 Vitamin E 400 unit PO DAILY 11/10/19 Anemia: No Asthma: No Cancer: No Cardiac Disorders: Yes (ASHD CAD) CVA: No COPD: Yes CHF: No Dementia: No Diabetes: No GI Disorders: Yes (ADHESIONS,DIVERTICULOSIS,GASTRITIS,REFLUX) Disorders: No HTN: Yes Hypercholesterolemia: Yes Liver Disease: No Seizures: No Thyroid Disease: No - Surgical History Abdominal Surgery: No Appendectomy: Yes (COLONOSCOPY 2X) Cardiac Surgery: Yes (CORONARY STENT) Cholecystectomy: No Lung Surgery: No Neurologic Surgery: Yes (LAMINECTOMY) Orthopedic Surgery: No - Immunization History Immunization Up to Date: No - Psycho-Social/Smoking History Smoking Status: No Smoking History: Never smoked Years of Tobacco Use: 35 Have you smoked in the past 12 months: No Number of Cigarettes Smoked Daily: 0 Information on smoking cessation initiated: Yes 'Breaking Loose' booklet given: 11/07/11 - Substance Abuse Hx (Audit-C & DAST Scrn) How often the patient has a drink containing alcohol: Never Score: In Men: 4 or > Positive; In Women: 3 or > Positive: 0 Screen Result (Pos requires Nsg. Audit-10AR): Negative Review of Systems - Review of Systems Able to Perform ROS?: Yes Comments:: GENERAL/CONSTITUTIONAL: No fever or chills HEAD, EYES, EARS, NOSE AND THROAT: No change in vision. No change in hearing. No sore throat CARDIOVASCULAR: No chest pain or shortness of breath RESPIRATORY: Denies cough, hemoptysis GASTROINTESTINAL: No nausea, vomiting, diarrhea or constipation GENITOURINARY: No dysuria, frequency, or change in urination MUSCULOSKELETAL: +chronic arthritis SKIN: No rash NEUROLOGIC: No headache, vertigo, loss of consciousness, or change in strength/sensation ENDOCRINE: No increased thirst. No abnormal weight change HEMATOLOGIC/LYMPHATIC: No anemia, easy bleeding ALLERGIC/IMMUNOLOGIC: No hives or skin allergy 11/10/19 16:43 Is the patient limited Yakut proficient: No *Physical Exam - Vital Signs Last Vital Signs Temp Pulse Resp BP Pulse Ox 98 F 88 20 122/89 97 11/10/19 16:03 11/10/19 16:38 11/10/19 16:38 11/10/19 16:38 11/10/19 16:38 - Physical Exam GENERAL: Awake, alert, and oriented to person/place/time, in no acute distress HEAD: No signs of trauma, normocephalic, atraumatic EYES: PERRLA, EOMI, sclera anicteric, conjunctiva clear ENT: Hearing grossly normal, nares patent, oropharynx clear without exudates. Moist mucosa LUNGS: No distress, speaks in full sentences, clear to auscultation bilaterally HEART: Regular rate and rhythm, normal S1 and S2, no murmurs appreciated, peripheral pulses normal and equal bilaterally ABDOMEN: Soft, nontender, normoactive bowel sounds. No guarding, no rebound EXTREMITIES: Moving all extremities independently; strength 5/5 throughout NEUROLOGICAL: Cranial nerves II through XII grossly intact. Normal speech, normal gait, no focal sensorimotor deficits SKIN: Warm, Dry 11/10/19 16:43 ED Treatment Course - LABORATORY CBC & Chemistry Diagram: 11/10/19 17:00 11/10/19 17:00 Medical Decision Making - Medical Decision Making The pt is a 74F w/ a history of HTN, neuropathy, distant TIA who presents from [facility] for evaluation of hypotension to 80s/60s. The pt is currently normotensive and denies any symptoms. Orthostatics Laying - 106/67 Sitting - 109/69 Standing - 104/72 ED Course CMP, CBC, Trop I ECG CXR 1L LR 11/10/19 17:17 ECG w/ NSR; HR 78; QTc 428; left axis deviation; no acute ischemic changes; abn ecg No anemia No leukocytosis 11/10/19 17:44 Lytes unremarkable No ZONIA LFTs unremarkable Trop I neg CXR w/o acute pathology Pt ambulating with stable gait Plan for D/C w/ PCP f/u Discharge instructions and return precautions given Patient in agreement and verbalized understanding Dispo: Home 11/10/19 18:04 Discharge - Discharge Information Problems reviewed: Yes Clinical Impression/Diagnosis: Hypotension Qualifiers: Hypotension type: unspecified hypotension type Qualified Code(s): I95.9 - Hypotension, unspecified Condition: Stable - Admission No - Follow up/Referral Referrals: Brenden Cage [Primary Care Provider] - - Patient Discharge Instructions Patient Printed Discharge Instructions: DI for Hypotension Additional Instructions: You were seen in the Emergency Department for evaluation of low blood pressure. Your pressures here were stable and you remained without symptoms. Your labs and ECG were unremarkable. Review the handouts provided at discharge. Follow up with your primary care provider within a week. Return to the Emergency Department if you develop fevers, lightheadedness, falls, passing out, vision changes, changes in sensation/strength, balance changes, chest pain, trouble breathing, worsening symptoms, or any new/concerning symptoms. - Post Discharge Activity
[2019-11-10] MEDS ORDERED: LACTATED RINGERS SOLUTION 1000 ML INFUS.BAG IV ONE (16:57)
[2019-11-10 17:19] LABS: BASO % 0.8 % (0-2.0); EOS % 1.7 % (0-4.5); HEMATOCRIT 42.3 % (32.4-45.2); LYMPH % 35.9 % (8-40); MCH 29.6 pg (25.7-33.7); MCHC 33.2 g/dl (32.0-36.0); MEAN CELL VOLUME 89.1 fl (80-96); MONO % 7.6 % (3.8-10.2); PLATELET COUNT 181 K/MM3 (134-434); RBC 4.74 M/mm3 (3.60-5.2); RDW 14.7 % (11.6-15.6); WHITE BLOOD COUNT 8.1 K/mm3 (4.0-10.0)
--- NOTE | 2019-11-10 17:19 | PDOC ---
Documentation entered by Elaine Rojo SCRIBE, acting as scribe for Cirilo Cotter MD. Cirilo Cotter MD: This documentation has been prepared by the Darrel emery Ana, SCRIBE, under my direction and personally reviewed by me in its entirety. I confirm that the documentation accurately reflects all work, treatment, procedures, and medical decision making performed by me. Attending Attestation - Resident Resident Name: UyenBryan - ED Attending Attestation I have performed the following: I have examined & evaluated the patient, The case was reviewed & discussed with the resident, I agree w/resident's findings & plan, Exceptions are as noted - HPI HPI: 11/10/19 16:43 Patient is a 74 year old female with a significant past medical history of HTN, HLD, COPD, s/p cardiac stent, CAD, diverticulitis, multiple intra-abdominal surgeries, adhesions, and history of volvulus, who presents to the ED with weakness since earlier today. Patient described an "odd sensation and unsteadiness" around 11:30am this morning that "only lasted a few minutes". Patient went to urgent care, where she was found to be hypotensive. Pt was subsequently sent to ED for further evaluation. Pt currently denies any symptoms. Patient denies: headache, fever, chills, any vision changes, SOB, chest pain Allergies: KIERAN PCP: Dr. Brenden Cage - Physicial Exam PE: 11/10/19 16:45 See resident note - Medical Decision Making 11/10/19 17:22 74 F with episode of lightheadedness, found to be hypotensive in urgent care. However, pt with normal vitals in ED. Normal orthostatic vitals. Normal neuro exam. - Labs - EKG 11/10/19 18:01 Labs wnl CXR clear EKG normal Pt reassessed - continues to be asymptomatic. Ambulating in ED with steady gait. Pt is well appearing, with normal vitals. Clinically stable for DC at this time. I discussed the physical exam findings, ancillary test results and final diagnoses with the patient. I answered all of the patient's questions. The patient was satisfied with the care received and felt comfortable with the discharge plan and treatment plan. The patient agrees to follow up with the primary care physician within 24-72 hours. Please note this patient was evaluated during the COVID-19 crisis with the presidential Shannon Act Declaration and the [place] governor executive order number 202. He/she was evaluated and clinical decisions were made relative to healthcare system resources as well as clinical picture during a pandemic crisis situation. Discharge - Discharge Information Problems reviewed: Yes Clinical Impression/Diagnosis: Hypotension Qualifiers: Hypotension type: unspecified hypotension type Qualified Code(s): I95.9 - Hypotension, unspecified Condition: Stable Disposition: HOME - Follow up/Referral Referrals: Brenden Cage [Primary Care Provider] - - Patient Discharge Instructions Patient Printed Discharge Instructions: DI for Hypotension Additional Instructions: You were seen in the Emergency Department for evaluation of low blood pressure. Your pressures here were stable and you remained without symptoms. Your labs and ECG were unremarkable. Review the handouts provided at discharge. Follow up with your primary care provider within a week. Return to the Emergency Department if you develop fevers, lightheadedness, falls, passing out, vision changes, changes in sensation/strength, balance changes, chest pain, trouble breathing, worsening symptoms, or any new/concerning symptoms. - Post Discharge Activity
[2019-11-10 17:59] LABS: ALBUMIN 3.9 g/dl (3.4-5.0); ALK PHOS 66 U/L (45-117); ANION GAP 7 MMOL/L (8-16); BILIRUBIN,TOTAL 0.4 mg/dL (0.2-1); CALCIUM 9.6 mg/dL (8.5-10.1); CHLORIDE 106 mmol/L (98-107); CO2 25 mmol/L (21-32); CREATININE 0.9 mg/dL (0.55-1.3); GLUCOSE,RANDOM 105 mg/dL (74-106); POTASSIUM 4.3 mmol/L (3.5-5.1); SGOT/AST 31 U/L (15-37); SGPT/ALT 47 U/L (13-61); SODIUM 138 mmol/L (136-145); TOT PROT 6.9 g/dl (6.4-8.2)
[2019-11-10 18:40] VITALS: BP 110/69; PULSE 75; TEMP 98.6
--- NOTE | 2019-11-11 12:12 | EKG ---
Test Reason : Blood Pressure : / mmHG Vent. Rate : 078 BPM Atrial Rate : 078 BPM P-R Int : 170 ms QRS Dur : 064 ms QT Int : 376 ms P-R-T Axes : 050 -06 039 degrees QTc Int : 428 ms NORMAL SINUS RHYTHM MINIMAL VOLTAGE CRITERIA FOR LVH, MAY BE NORMAL VARIANT INFERIOR INFARCT , AGE UNDETERMINED CANNOT RULE OUT ANTERIOR INFARCT , AGE UNDETERMINED ABNORMAL ECG WHEN COMPARED WITH ECG OF 05-MAR-2019 18:19, NO SIGNIFICANT CHANGE WAS FOUND Confirmed by ADA SARMIENTO MD ([id number]) on 11/11/2019 12:12:22 PM Referred By: Confirmed By:ADA SARMIENTO MD
== END 2019-11-10 18:41 | disposition home or self-care (01) ==
LOC: JER 15:58
DX: I95.9 Hypotension, unspecified (principal)
CPT/HCPCS: 36415; 71045-TC-FY; 80053; 84484; 85025; 93005; 93010; 99285-25